=== PATIENT | male | born 1995 | race Caucasian/White ===

== ENCOUNTER 2019-02-24 07:25 | Day surgery (SDC) | payer OTHER ==
[2019-02-24] MEDS ORDERED: Fentanyl 100 MCG/2 ML VIAL ONE ×3 (08:12→09:17)
[2019-02-24] MEDS ORDERED: Bupivacaine/Epinephrine 0.25% 30 ML VIAL ONE (08:43)
[2019-02-24] MEDS ORDERED: PROPOFOL 200 MG/20 ML VIAL ONE (15:07)
[2019-02-24] MEDS ORDERED: Dexamethasone 20 MG/5 ML VIAL ONE (15:07)
[2019-02-24] MEDS ORDERED: Glycopyrrolate 0.2 MG/ML 5 ML SYRINGE ONE (15:07)
[2019-02-24] MEDS ORDERED: Rocuronium Bromide 10 MG/ML (10ML VIAL) ONE (15:07)
[2019-02-24] MEDS ORDERED: Ondansetron PF 4 MG/2 ML Vial ONE (15:07)
[2019-02-24] MEDS ORDERED: Succinylcholine Chloride 20 MG/ML 10 ml SYRINGE FS ONE (15:07)
[2019-02-24] MEDS ORDERED: Ketorolac Tromethamine 30 MG/ML VIAL ONE (15:07)
[2019-02-24] MEDS ORDERED: diphenhydrAMINE 50 MG/ML VIAL ONE (15:07)
[2019-02-24] MEDS ORDERED: Lidocaine 1% PF 5 ML VIAL ONE (15:07)
--- NOTE | 2019-02-24 15:35 | HP ---
CHIEF COMPLAINT: Lower abdominal pain. HISTORY OF PRESENT ILLNESS: This is a 23-year-old male with a history of pain in his lower abdomen, became more localized to the right lower quadrant overnight. Seen in the [facility], where CT scan reveals a dilated appendix with appendicoliths. He was transferred over here to [facility] for definitive appendectomy. The patient denies history of chronic abdominal pain. The pain is associated with nausea. No vomiting. No change in stools. No constipation. Denies history of inflammatory bowel disease or Crohn disease. PAST MEDICAL HISTORY: ADHD. PAST SURGICAL HISTORY: Tonsils and adenoids. MEDICATIONS: Adderall. ALLERGIES: NO KNOWN DRUG ALLERGIES. SOCIAL HISTORY: No smoking, alcohol, or other drugs. REVIEW OF SYSTEMS: Ten-system review of systems is otherwise negative unless described above. PHYSICAL EXAMINATION: HEENT: Sclerae anicteric. Oropharynx clear. NECK: No lymphadenopathy. CHEST: Clear. HEART: Regular rate and rhythm. ABDOMEN: Soft, tender right lower quadrant with localized guarding without rebound. No abdominal or inguinal hernias. EXTREMITIES: No ischemia or edema to extremities. DIAGNOSTIC STUDIES: CT scan shows acute appendicitis. ASSESSMENT: Acute appendicitis. PLAN: Laparoscopic appendectomy. Risks, benefits, and alternatives were discussed. He gives consent. We will do this today. Job ID: [id number]
--- NOTE | 2019-02-24 15:48 | OP ---
DATE OF PROCEDURE: 02/24/2019 PREOPERATIVE DIAGNOSIS: Acute appendicitis. POSTOPERATIVE DIAGNOSIS: Acute appendicitis. PROCEDURE PERFORMED: Laparoscopic appendectomy. ANESTHESIA: General. ESTIMATED BLOOD LOSS: Minimal. COMPLICATIONS: None. SPECIMEN: Appendix. FINDINGS: Appendicitis. DESCRIPTION OF PROCEDURE: The patient was taken to the operating room and laid supine on the operating room table. After general anesthetic was obtained, the Rai was placed. The abdomen was shaved, prepped, and draped in a sterile fashion. A curved incision was made below the umbilicus. A cautery was used to dissect down to and score the fascia. Abdominal cavity was entered bluntly using a Steph clamp. Holding stitch of PDS was placed on each side of the fascia. Chin trocar was placed. High-flow pneumoperitoneum was obtained. A suprapubic 5 mm port and left lower quadrant 5 mm port were placed under direct visualization. The cecum was rolled over to reveal acute appendicitis. A window was made at the base of the appendix and mesoappendix. Laparoscopic stapler was fired across the base of the appendix. A reload was fired across the mesoappendix. The appendix was placed in EndoCatch bag and brought out through the Chin. There was no bleeding along the staple lines. No evidence of damage to any intraabdominal structures. All port sites were infiltrated using local anesthetic. All ports were removed under camera visualization. Pneumoperitoneum was let down. The abdomen had been irrigated copiously before the ports were removed. The PDS was used to close the fascial defect below the umbilicus. All incisions were irrigated and closed using 4-0 Monocryl and Dermabond. The patient was sent to Recovery in stable condition. All instrument counts, needle counts, and lap counts are correct. Job ID: [id number]
== END 2019-02-24 12:25 | disposition home or self-care (01) ==
LOC: SDC 07:25
PROVIDERS: ATTEND Surgery
PROC: 0DTJ4ZZ Resection of Appendix, Percutaneous Endoscopic Approach (ICD-10-PCS; principal; 2019-02-24)
DX: K35.80 Unspecified acute appendicitis (principal); F90.9 Attention-deficit hyperactivity disorder, unspecified type; Z79.899 Other long term (current) drug therapy
CPT/HCPCS: 88304; J1100; J1200; J1885; J2001; J2405; J2704; J3010